=== PATIENT | female | born 1955 | race Caucasian/White ===

== ENCOUNTER → 2020-05-16 15:35 | Outpatient (BNVA) | payer MEDICARE, MEDICAID, SELFPAY | PROVIDERS: PCP Physician Assistant; Visit Provider Urology | DX: N39.41 Urge incontinence (principal); N31.8 Other neuromuscular dysfunction of bladder | CPT/HCPCS: Q3014 ==

== ENCOUNTER → 2020-09-26 13:28 | Outpatient (BNVA) | payer MEDICARE, MEDICAID, SELFPAY | PROVIDERS: PCP Physician Assistant; Visit Provider Urology | CPT/HCPCS: Q3014 ==

== ENCOUNTER 2020-10-16 08:53 | Day surgery (SDC) | payer MEDICARE, MEDICAID, SELFPAY ==
[2020-10-10 11:25] VITALS: BMI 38.9
--- NOTE | 2020-10-12 13:50 | HO.ANESPROP2 ---
Documented by User: Mariely Regalado 10/12/20 13:51 HPI - Anesthesia Eval Consult details Narrative: 65yo F for Cystoscopy Botox Injection multiple allergies PMFSH Active Problems Active Problems: All Active Problems (Updated 10/10/20 @ 11:29 by Stephanie Pinzon) Urge incontinence (Acute) Bladder hypertonicity (Acute) Past Medical History Medical History Back pain Bladder hypertonicity COVID-19 vaccine administered Degenerative disc disease Depression Diabetes GERD (gastroesophageal reflux disease) History of posttraumatic stress disorder (PTSD) HLD (hyperlipidemia) HTN (hypertension) Hx of bipolar disorder Obesity Psychiatric disorder Sciatica Urge incontinence Surgical History Surgical History H/O cystoscopy History of ankle surgery History of bladder surgery History of ear surgery Hx of carpal tunnel repair Hx of cataract surgery Hx of cholecystectomy Hx of foot surgery Hx of hysterectomy Social History Social History Are you a primary care management specialist to a significant other at home: No Patient Tobacco Use Status: Tobacco use Unknown Use of substances other than those prescribed or required for medical reasons: No Are you DNR?: No Advance Directives: No Advance Directives Information Provided: No Advance Directives on File: No Recently lost weight without trying: No Eating poorly because of decreased appetite: No Nutrition Risks: No Nutritional Risk Meds Allergies Allergy/AdvReac Type Severity Reaction Status Date / Time amlodipine [Norvasc] Allergy Severe Angioedema Verified 10/10/20 10:52 codeine [CODEINE] Allergy Intermediate AGITATION Verified 09/26/20 13:30 hydrocodone [HYDROCODONE] Allergy Intermediate RASH,ITCH Verified 09/26/20 13:30 acetaminophen [From NyQuil] Allergy Unknown Verified 10/16/20 11:13 dextromethorphan Allergy Unknown Verified 10/16/20 11:13 [From NyQuil] doxylamine [From NyQuil] Allergy Unknown Verified 10/16/20 11:13 pseudoephedrine [From NyQuil] Allergy Unknown Verified 10/16/20 11:13 amoxicillin [AMOXICILLIN] AdvReac Intermediate NAUSEA & Verified 09/26/20 13:30 VOMITING adhesive bandages Allergy Intermediate Rash Uncoded 10/10/20 10:50 BANDAIDS Allergy Intermediate RASH Uncoded 01/13/20 16:35 Home Medications Medication Instructions Recorded Confirmed Last Taken Type insulin glargine [Basaglar KwikPen 45 unit SUBCUT BID 05/22/20 10/10/20 Unknown History U-100 Insulin] lamotrigine 1 tab PO DAILY 05/22/20 10/10/20 Unknown History melatonin 1 tab PO BEDTIME 05/22/20 10/10/20 Unknown History metronidazole 1 applic TOPICAL BID 05/22/20 10/10/20 Unknown History pantoprazole 1 tab PO DAILY 10/10/20 10/10/20 Unknown History Exam Exam Date and Time: October 12, 2020 1350 Height,Weight and Vital Signs: Height 5 ft 3 in Weight 99.79 kg Assessment and Plan Assessment Anesthesia Assessment: Chart Reviewed Documented by User: Taylor Camilo 10/16/20 11:53 PMFSH Past Medical History Medical History Back pain Bladder hypertonicity COVID-19 vaccine administered Degenerative disc disease Depression Diabetes GERD (gastroesophageal reflux disease) History of posttraumatic stress disorder (PTSD) HLD (hyperlipidemia) HTN (hypertension) Hx of bipolar disorder Obesity Psychiatric disorder Sciatica Urge incontinence Family History Family history of problems with anesthesia: Unobtainable (Patient states does not know) Surgical History Surgical History H/O cystoscopy History of ankle surgery History of bladder surgery History of ear surgery Hx of carpal tunnel repair Hx of cataract surgery Hx of cholecystectomy Hx of foot surgery Hx of hysterectomy History of Problems with Anesthesia: No Social History Social History Are you a primary care management specialist to a significant other at home: No Patient Tobacco Use Status: Tobacco use Unknown Use of substances other than those prescribed or required for medical reasons: No Are you DNR?: No Advance Directives: No Advance Directives Information Provided: No Advance Directives on File: No Recently lost weight without trying: No Eating poorly because of decreased appetite: No Nutrition Risks: No Nutritional Risk Meds Allergies Allergy/AdvReac Type Severity Reaction Status Date / Time amlodipine [Norvasc] Allergy Severe Angioedema Verified 10/10/20 10:52 codeine [CODEINE] Allergy Intermediate AGITATION Verified 09/26/20 13:30 hydrocodone [HYDROCODONE] Allergy Intermediate RASH,ITCH Verified 09/26/20 13:30 acetaminophen [From NyQuil] Allergy Unknown Verified 10/16/20 11:13 dextromethorphan Allergy Unknown Verified 10/16/20 11:13 [From NyQuil] doxylamine [From NyQuil] Allergy Unknown Verified 10/16/20 11:13 pseudoephedrine [From NyQuil] Allergy Unknown Verified 10/16/20 11:13 amoxicillin [AMOXICILLIN] AdvReac Intermediate NAUSEA & Verified 09/26/20 13:30 VOMITING adhesive bandages Allergy Intermediate Rash Uncoded 10/10/20 10:50 BANDAIDS Allergy Intermediate RASH Uncoded 01/13/20 16:35 Home Medications Medication Instructions Recorded Confirmed Last Taken Type insulin glargine [Basaglar KwikPen 45 unit SUBCUT BID 05/22/20 10/10/20 Unknown History U-100 Insulin] lamotrigine 1 tab PO DAILY 05/22/20 10/10/20 Unknown History melatonin 1 tab PO BEDTIME 05/22/20 10/10/20 Unknown History metronidazole 1 applic TOPICAL BID 05/22/20 10/10/20 Unknown History pantoprazole 1 tab PO DAILY 10/10/20 10/10/20 Unknown History Exam Height,Weight and Vital Signs: Vital Signs Temp Pulse Resp BP Pulse Ox 10/16/20 11:03 98.2 F 86 16 160/57 H 100 Pertinent Lab Results Pertinent Lab Results: Lab Results 10/16/20 Range/Units 11:00 POC Glucose 58 L* (60-115) mg/dL Narrative Narrative: 100ml of D5W ordered for low blood sugar Airway Mallampati Class: III (Patient not cooperative. Being belligerent) TM Dist: >3cm Neck ROM: Full Loose/Missing/Broken Teeth: Yes (Dentures at home. 4 bottom teeth, not loose per patient) Heart: RRR Lungs: CTAB Assessment and Plan Assessment Anesthesia Assessment: Anesthesia Plan Discussed and Chart Reviewed Final Anesthetic Review NPO: Yes ASA Class: III Final Preanesthetic Review: No Changes in Pt Med Stat, Meds/Allgs Chart Reviewed, Consent Obtained/Reviewed and Anes Risks/Benef Reviewed Patient Risk: Low Procedure Risk: Low Assessment/Block/Sedation in SS: Assess/Block/Sedation-SS Anesthetic Plan Anesthetic Plan: GA Disposition: Standard PACU
[2020-10-16] VITALS (7 sets, daily range): BP systolic 98–160; BP diastolic 40–57; PULSE 66–86; RESP 14–18; TEMP 36.7–36.8; O2SAT 97–100
--- NOTE | 2020-10-16 10:54 | MHC.SHP ---
Pre-Procedural Eval Section A The patient is an INPATIENT: No Changes since office visit: No Cold of Flu in the past 2 weeks, No New Medical Problems, No Changes in Medication and No Patient answered all questions The History & Physical has been completed within 30 days and I have reviewed it.: Yes Section B Chief Complaint: dysfunction of bladder Allergies: Allergies Allergy/AdvReac Type Severity Reaction Status Date / Time amlodipine [Norvasc] Allergy Severe Angioedema Verified 10/10/20 10:52 codeine [CODEINE] Allergy Intermediate AGITATION Verified 09/26/20 13:30 hydrocodone [HYDROCODONE] Allergy Intermediate RASH,ITCH Verified 09/26/20 13:30 amoxicillin [AMOXICILLIN] AdvReac Intermediate NAUSEA & Verified 09/26/20 13:30 VOMITING adhesive bandages Allergy Intermediate Rash Uncoded 10/10/20 10:50 BANDAIDS Allergy Intermediate RASH Uncoded 01/13/20 16:35 Plan Diagnosis/Plan: Unchanged (Cysto Botox injection) I have reviewed the history and physical and performed a pertinent physical examination on my patient. No changes have occurred unless specified.
[2020-10-16 11:04] LABS: Glucose, Whole Blood 58 mg/dL (60-115)
--- NOTE | 2020-10-16 11:07 | PC.NURSE ---
Blood Sugar 58 at [address]. Camilo notified. New order for 100ML of D5W IV wide open.
[2020-10-16] MEDS: Lactated Ringers 1,000 ML 50 ML IVCONT (11:32)
[2020-10-16] MEDS: levoFLOXacin/D5W 500 MG/100 ML PIGGYBACK 100 MG IV (11:39)
--- NOTE | 2020-10-16 11:46 | PC.NURSE ---
Patient's hearing aids removed and placed in metallic colored case and placed in black purse. Glasses removed and placed in white labeled bin and placed in cabinet.
--- NOTE | 2020-10-16 12:23 | W.PM.OPN ---
Operative Note Operative Note Date of Service: 10/16/20 Narrative: PreOperative Diagnosis: Overactive bladder Post Operative Diagnosis: Overactive bladder Procedure: Cystoscopy with Botox injection Surgeon: Dr Edilson Cruz Anesthesia: General Indications for procedure: 65-year-old female. Persistent overactive bladder despite medications. Prior Botox with success. Is have for re-application. Procedure: After informed consent was verified the patient was brought to the operating room and placed in a supine position. Anesthesia was administered per protocol. The patient was placed in modified dorsal lithotomy position and prepped and draped in sterile fashion. Safety pause time-out was observed. Antibiotics being given. Cystoscopy performed. Normal bladder. There were trabeculations mild on the posterior wall. Botox injection performed. 100 units of Botox in 10 cc of normal saline. Twenty injection sites on the posterior wall of the bladder with 0.5 cc per injection site Patient tolerated procedure well was extubated and transferred in stable condition to the recovery area. Pathology: None Drains: None
[2020-10-16 12:51] LABS: Glucose, Whole Blood 129 mg/dL (60-115)
[2020-10-16 12:51] LABS: Glucose, Whole Blood 65 mg/dL (60-115)
== END 2020-10-16 13:35 | disposition home or self-care (01) ==
PROVIDERS: PCP Physician Assistant; Visit Provider Urology
PROC: 3E0K8GC Introduction of Other Therapeutic Substance into Genitourinary Tract, Via Natural or Artificial Opening Endoscopic (ICD-10-PCS; CPT 52287; principal; 2020-10-16 13:20)
DX: N31.8 Other neuromuscular dysfunction of bladder (principal); N39.41 Urge incontinence; E11.9 Type 2 diabetes mellitus without complications; I10 Essential (primary) hypertension; F32.9 Major depressive disorder, single episode, unspecified; Z79.4 Long term (current) use of insulin; Z79.899 Other long term (current) drug therapy; Z90.49 Acquired absence of other specified parts of digestive tract; Z88.0 Allergy status to penicillin; Z88.8 Allergy status to other drugs, medicaments and biological substances; Z91.040 Latex allergy status
CPT/HCPCS: 52287; 82947; J0585; J1100; J1956; J2250; J2370; J2405; J2765; J3010

== ENCOUNTER → 2020-12-05 13:22 | Outpatient (BNVA) | payer MEDICARE, MEDICAID, SELFPAY | PROVIDERS: PCP Physician Assistant ==